=== PATIENT | male | born 1980 | race Two or more races ===

== ENCOUNTER 2020-11-12 16:13 | Emergency (ER) | payer MEDICAID ==
[~2020-11-12] VITALS: Ht 177.8 cm; Wt 85.3 kg
--- NOTE | 2020-11-12 16:41 | NUR ---
ASSUMED CARE OF PATIENT. PATIENT REPORTS HIS GIRLFRIEND HAS TRICHOMONIASIS AND HE WANTS TO BE TESTED. PT C/O BILATERAL LOWER ABD PAIN. VS STABLE. LA CUTE DISTRESS NOTED. WILL CONTINUE TO MONITOR.
[2020-11-12] MEDS ORDERED: metroNIDAZOLE 500 MG TABLET ONE (17:29)
[2020-11-12] MEDS ORDERED: metroNIDAZOLE 500 MG TABLET PO ONE (17:30)
[2020-11-12] MEDS ORDERED: CEFTRIAXONE 1,000 MG IM ONE (17:30)
[2020-11-12] MEDS ORDERED: CEFTRIAXONE 1,000 MG ONE (17:30)
--- NOTE | 2020-11-12 17:39 | NUR ---
CALLED PHARMACY TO VERIFY ROCEPHIN DOSE.
[2020-11-12 17:41] LABS: MICROSCOPIC INDICATED
[2020-11-12] MEDS ORDERED: DIPHENHYDRAMINE 25 MG CAPSULE ONE (17:52)
[2020-11-12] MEDS ORDERED: DIPHENHYDRAMINE 25 MG CAPSULE PO ONE (18:00)
[2020-11-12 18:03] VITALS: BP 106/64
--- NOTE | 2020-11-12 18:32 | NUR ---
PT VERBALIZES DISCHARGE INSTRUCTIONS. NO ACUTE DISTRESS NOTED. VS STABLE. CALL LIGHT I PLACE. WILL CONTINUE TO MONITOR.
== END 2020-11-12 18:42 | disposition home or self-care (01) ==
LOC: ED 17:55
DX: A59.9 Trichomoniasis, unspecified (principal); R10.32 Left lower quadrant pain
CPT/HCPCS: 81001; 87491; 87591; 96372; 99283; J0696; Q0163

== ENCOUNTER 2020-11-26 16:24 | Emergency (ER) | payer MEDICAID ==
[~2020-11-26] VITALS: Ht 177.8 cm; Wt 86.0 kg
[2020-11-26 16:26] VITALS: BP 118/75
--- NOTE | 2020-11-26 16:41 | NUR ---
CC OF ABD PAIN IN LOWER MIDDLE ABD "NEAR MY BLADDER". PT STATES HE WAS SEEN ONE WEEK AGO FOR TRICHOMONIASIS AND HIS GF WAS SEEN EARLIER TODAY AND TREATED FOR SAME.
== END 2020-11-26 17:57 | disposition home or self-care (01) ==
LOC: ED 17:39
DX: A59.9 Trichomoniasis, unspecified (principal)
CPT/HCPCS: 99283